=== PATIENT | male | born 1945 | race Caucasian/White ===

== ENCOUNTER 2016-11-30 07:07 | Day surgery (SDC) | payer OTHER, BC ==
[2016-11-28 13:16] VITALS: BMI 26.6
[2016-11-30] MEDS ORDERED: PROPOFOL 20 ML ONE ×2 (07:11)
[2016-11-30] MEDS ORDERED: LIDOCAINE HCL/PF 2% SDV 5ML VIAL ONE (07:16)
[2016-11-30 07:24] VITALS: PULSE 62
[2016-11-30 09:11] VITALS: BP 104/67; TEMP 97.8
--- NOTE | 2016-12-01 17:05 | PATH ---
Surgical Pathology Report Patient Name: KATHLEEN BAPTISTE [facility]. Rec. #: [id number] /Age/Gender: 1945 (Age: 71) / M Account: [id number] Location: Taken: 11/30/2016 Received: 11/30/2016 Reported: 12/01/2016 Physicians: Vitaliy Mitchell M.D. Specimen(s) Received RIGHT COLON BX Clinical History Polyp Final Diagnosis RIGHT COLON, BIOPSY: TUBULAR ADENOMA. Electronically Signed Vivienne Monzon M.D. Gross Description Received in formalin, labeled "right colon" is a amaya, irregular portion of soft tissue measuring 0.6 cm. in greatest dimension. The specimen is submitted in toto in one cassette. /11/30/201611/30/2016
== END 2016-11-30 09:45 | disposition home or self-care (01) ==
LOC: FASU-ENDO 07:07
PROVIDERS: ATTEND Internal Medicine Gastroenterology
PROC: 0DBK8ZX Excision of Ascending Colon, Via Natural or Artificial Opening Endoscopic, Diagnostic (ICD-10-PCS; principal; 2016-11-30 08:33)
DX: Z86.010 Personal history of colon polyps (principal); D12.2 Benign neoplasm of ascending colon; K57.30 Diverticulosis of large intestine without perforation or abscess without bleeding; K64.8 Other hemorrhoids; K64.4 Residual hemorrhoidal skin tags
CPT/HCPCS: 88305-TC

== ENCOUNTER 2020-11-02 08:26 | Day surgery (SDC) | payer OTHER, BC ==
[2020-10-28 16:46] VITALS: BMI 26.6
[2020-11-02 10:09] VITALS: PULSE 73; TEMP 97.6
[2020-11-02 10:20] VITALS: BP 113/70
== END 2020-11-02 10:45 | disposition home or self-care (01) ==
LOC: FASU-ENDO 08:26
PROVIDERS: ATTEND Internal Medicine Gastroenterology
PROC: 0DJD8ZZ Inspection of Lower Intestinal Tract, Via Natural or Artificial Opening Endoscopic (ICD-10-PCS; principal; 2020-11-02 09:35)
DX: Z86.010 Personal history of colon polyps (principal); K57.30 Diverticulosis of large intestine without perforation or abscess without bleeding; K64.0 First degree hemorrhoids